=== PATIENT | male | born 1995 | race Caucasian/White ===

== ENCOUNTER 2019-04-17 22:51 | Emergency (ER) | payer SELFPAY | END 2019-04-18 01:58 | disposition home or self-care (01) | LOC: JER 04-18 01:58 | PROC: 2W3QX1Z Immobilization of Right Lower Leg using Splint (ICD-10-PCS; principal; 2019-04-17) | DX: S82.61XA Displaced fracture of lateral malleolus of right fibula, initial encounter for closed fracture (principal); Y93.39 Activity, other involving climbing, rappelling and jumping off; Y93.82 Activity, spectator at an event; Y92.89 Other specified places as the place of occurrence of the external cause; Y99.8 Other external cause status ==

== ENCOUNTER 2021-07-14 15:56 | Emergency (ER) | payer SELFPAY ==
[2021-07-14 16:05] VITALS: BP 110/67; PULSE 87; BMI 21.5
[2021-07-14 16:06] VITALS: TEMP 97.9
[2021-07-14] MEDS ORDERED: DIPHTH,PERTUSS(ACELL),TET 0.5 ML DISP.SYRIN IM ONE ×2 (17:19→17:31)
== END 2021-07-14 18:43 | disposition home or self-care (01) ==
LOC: JERFT 15:56
PROC: 3E0234Z Introduction of Serum, Toxoid and Vaccine into Muscle, Percutaneous Approach (ICD-10-PCS; principal; 2021-07-14)
DX: S81.811A Laceration without foreign body, right lower leg, initial encounter (principal); S61.012A Laceration without foreign body of left thumb without damage to nail, initial encounter; W25.XXXA Contact with sharp glass, initial encounter; Y28.0XXA Contact with sharp glass, undetermined intent, initial encounter; Y92.002 Bathroom of unspecified non-institutional (private) residence as the place of occurrence of the external cause
CPT/HCPCS: 90715; 99284-25

== ENCOUNTER 2021-09-14 23:33 | Emergency (ER) | payer SELFPAY ==
[2021-09-14 23:37] VITALS: BP 106/66; PULSE 75; TEMP 98; BMI 21.5
== END 2021-09-15 01:14 | disposition home or self-care (01) ==
LOC: JER 23:33
DX: S93.401A Sprain of unspecified ligament of right ankle, initial encounter (principal); Y30.XXXA Falling, jumping or pushed from a high place, undetermined intent, initial encounter; Y92.9 Unspecified place or not applicable
CPT/HCPCS: 73610-TC-RT-FY; 73630-TC-RT-FY; 99284-25